=== PATIENT | female | born 1995 | race Caucasian/White ===

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

== ENCOUNTER 2017-04-28 10:18 | Emergency (ER) | payer MEDICAID ==
[2017-04-28] MEDS ORDERED: NORMAL SALINE 1,000 ML IV ONE (10:42)
[2017-04-28] MEDS ORDERED: ACETAMINOPHEN 160 MG/5 ML BTL PO ONE (10:42)
[2017-04-28] MEDS ORDERED: KETOROLAC TROMETHAMINE 30 MG/ML VIAL IV ONE (10:42)
--- NOTE | 2017-04-28 10:43 | ERNOTE ---
ENT HPI Date of Service: 04/28/17 Presenting Symptoms: other - Sore throat Time Seen by Provider: 04/28/17 10:28 Source: patient, family, RN notes reviewed, old records Exam Limitations: no limitations - Immun/Allergies/Home Medications Immunizations: IMMUNIZATION HX Immunizations Up to Date Yes History of Influenza Vaccine Yes Hx Pneumococcal Vaccination No Allergies/Adverse Reactions: Allergies Allergy/AdvReac Type Severity Reaction Status Date / Time Penicillins Allergy Hives Verified 04/28/17 10:25 Home Medications: HOME MEDICATIONS NK [No Home Medication] 04/28/17 [Last Taken Unknown] - History of Present Illness Narrative: 21 y/o female ambulatory to the ED for an ongoing sore throat. She reports having swallowing difficulty to the point that she is unable to take pills. She was seen in the walk in clinic on 04/24. She tested negative for strep, but was treated with a ZPack. She was then seen here 2 days later for lack of improvement. She tested negative for mono. She was given IV fluids. She had a WBC of 14.9. She attempted to take ibuprofen at 0100, but gagged and vomited. Date (Duration): 04/24/17 Severity: Present: severe ENT Location: Present: throat Prearrival Treatment: Present: over the counter meds, prescription meds Associated Symptoms - ENT: Reports: fever, malaise, poor fluid intake, poor solid intake, voice change, sore throat, nasal congestion/drainage, headache. Denies: cough, drooling, facial pain/swelling, tooth pain, jaw swelling, ear drainage Prior Treament: Reports: recently seen, treated by physician, similar symptoms before, currently on antibiotics Review of Systems - Review of Systems Constitutional: Present: See HPI EYE: Present: no symptoms reported ENT: Present: See HPI Respiratory: Present: See HPI Cardiology: Present: no symptoms reported Gastrointestinal/Abdominal: Present: nausea, vomiting, abdominal pain Genitourinary: Absent: other - possible Musculoskeletal: Present: muscle pain, neck pain Skin: Absent: rash, lesions Neurological: Present: See HPI Endocrine: Present: no symptoms reported Hematologic/Lymphatic: Present: no symptoms reported Psych: Present: no symptoms reported - Patient's Past Medical History Patient History - Medical: Anemia, Migraines, UTI'S Patient History - Cardiac/Respiratory: No pertinent hx Patient History - Cancer: No Hx of Cancer Patient History - Surgical Procedures: Ear Tubes, T & A Patient History - Other: None LMP (Calendar): 04/05/17 - Family History Father Family History - Medical: Diabetes Type 2 Family History - Cardiac/Respiratory: Hypertension Mother Family History - Medical: Diabetes Type 2 Family History - Cardiac/Respiratory: No pertinent hx Grandfather-Paternal Family History - Medical: Grandfather-Maternal Family History - Medical: , Diabetes Type 2 Family History - Cardiac/Respiratory: Hypertension, Myocardial Infarction Family History - Cancer: No pertinent family hx Grandmother-Maternal Family History - Medical: No pertinent hx Family History - Cardiac/Respiratory: No pertinent hx Family History - Cancer: No pertinent family hx - Social History Living Situations: alone Abuse History: No History of abuse Psych History: Hx of Anxiety, Hx of Depression Does anyone smoke in the home?: No Alcohol Use: none Drug Use: none - Immunizations Immunizations Up to Date: Yes Hx Pneumococcal Vaccination: No History of Influenza Vaccine: Yes Physical Exam - Physical Exam General Appearance: Present: wd/wn, alert, mild distress Eye Exam: Normal inspection: bilateral Ears, Nose, Throat: Present: pharyngeal erythema, pharyngeal swelling, other - tonsils surgically absent, foul breath odor present. Absent: abnormal TM (R), abnormal TM (L), nasal congestion, sinus pain/drainage Neck: Present: supple, full range of motion, lymphadenopathy (R), lymphadenopathy (L) Respiratory: Present: no respiratory distress, normal breath sounds, no accessory muscle use, lungs clear Cardiovascular/Chest: Present: regular rate, rhythm, no murmur, normal peripheral pulses Neurological Exam: Present: alert, oriented, normal mood/affect Skin Exam: Present: normal color, warm/dry ED Progress - Results and Orders Patient's Lab Results:: I have reviewed the patient's lab results. - Vital Signs Patient's Vital Signs:: I have reviewed the patient's vital signs. Vital Signs: Vital Signs 04/28/17 10:22 Temperature 37.9 C H Pulse Rate 140 H Respiratory 14 Rate Blood Pressure 123/79 O2 Sat by Pulse 98 Oximetry - Progress/Reassessment Chief Complaint: Sore Throat Progress:: Improved Plan - Plan Plan: Repeat strep test is again negative, but will treat as strep as her symptoms are consistent with it. 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 No reaction of any kind present 30 minutes after med was given. Also received a liter of NS and a dose of solumedrol IV, as well as Tylenol liquid. Reports feeling better. Departure Clinical Impression: Acute pharyngitis Qualifiers: Pharyngitis/tonsillitis etiology: unspecified etiology Qualified Code(s): J02.9 - Acute pharyngitis, unspecified - Departure Disposition: Home self-care Condition: Stable Instructions: Sore Throat Additional Instructions: Drink plenty of liquids Tylenol and ibuprofen as discussed Referrals: Edil Prater MD [Primary Care Provider] -
[2017-04-28] MEDS ORDERED: KETOROLAC TROMETHAMINE 30 MG/ML VIAL ONE (10:44)
[2017-04-28] MEDS ORDERED: PENICILLIN G BENZATHINE 2 ML SYRG IM ONE ×2 (11:13→11:20)
[2017-04-28] MEDS ORDERED: METHYLPREDNISOLONE SOD SUCC/PF 125 MG/2 ML VIAL IV ONE (11:13)
[2017-04-28] MEDS ORDERED: METHYLPREDNISOLONE SOD SUCC/PF 125 MG/2 ML VIAL ONE (11:17)
[2017-04-28 12:46] VITALS: BP 117/74
== END 2017-04-28 12:00 | disposition home or self-care (01) ==
LOC: ER 10:18
DX: J02.9 Acute pharyngitis, unspecified (principal)

== ENCOUNTER 2017-07-28 10:44 | Emergency (ER) | payer MEDICAID ==
[2017-07-28] MEDS ORDERED: KETOROLAC TROMETHAMINE 60 MG/2 ML VIAL IM ONE ×2 (11:05→11:27)
--- NOTE | 2017-07-28 11:12 | ERNOTE ---
Lower Extremity HPI - General Time Seen by Provider: 07/28/17 10:57 Source: patient Exam Limitations: no limitations - Immun/Allergies/Home Medications Immunizations: IMMUNIZATION HX Immunizations Up to Date Yes History of Influenza Vaccine Yes Hx Pneumococcal Vaccination No Allergies/Adverse Reactions: Allergies Allergy/AdvReac Type Severity Reaction Status Date / Time Penicillins Allergy Hives Verified 07/28/17 10:54 Home Medications: HOME MEDICATIONS Methylprednisolone [Medrol Dosepak] 4 mg PO DAILY #1 tab.ds.pk 07/28/17 [Last Taken Unknown] - History of Present Illness Narrative: Painful reddish area on the left anterior tibia right superior anterior tibia and a tender area in the posterior left leg region. Patient states this happens "every couple of months" she complains of pain in the corresponding regions and denies any trauma insect bite or blunt trauma to the areas. He denies any fevers or chills or joint pains. She has been seen by Dr. Prater and worked up extensively. Review of Systems - Review of Systems Constitutional: Present: no symptoms reported EYE: Present: no symptoms reported ENT: Present: no symptoms reported Respiratory: Present: no symptoms reported Cardiology: Present: no symptoms reported Gastrointestinal/Abdominal: Present: no symptoms reported Genitourinary: Present: no symptoms reported Musculoskeletal: Present: See HPI - Patient's Past Medical History Patient History - Medical: Anemia, Migraines, UTI'S Patient History - Cardiac/Respiratory: No pertinent hx Patient History - Cancer: No Hx of Cancer Patient History - Surgical Procedures: Ear Tubes, T & A Patient History - Other: None LMP (Calendar): 04/05/17 - Family History Father Family History - Medical: Diabetes Type 2 Family History - Cardiac/Respiratory: Hypertension Mother Family History - Medical: Diabetes Type 2 Family History - Cardiac/Respiratory: No pertinent hx Grandfather-Paternal Family History - Medical: Grandfather-Maternal Family History - Medical: , Diabetes Type 2 Family History - Cardiac/Respiratory: Hypertension, Myocardial Infarction Family History - Cancer: No pertinent family hx Grandmother-Maternal Family History - Medical: No pertinent hx Family History - Cardiac/Respiratory: No pertinent hx Family History - Cancer: No pertinent family hx - Social History Living Situations: home Abuse History: No History of abuse Psych History: Hx of Anxiety, Hx of Depression Does anyone smoke in the home?: No Alcohol Use: none Drug Use: none - Immunizations Immunizations Up to Date: Yes Hx Pneumococcal Vaccination: No History of Influenza Vaccine: Yes Physical Exam - Physical Exam General Appearance: Present: wd/wn, alert, no apparent distress Head Exam: Present: normal inspection, no evidence of injury Ears, Nose, Throat: Present: normal ENT inspection Neck: Present: normal inspection Respiratory: Present: no respiratory distress, normal breath sounds, no accessory muscle use, chest nontender, lungs clear Cardiovascular/Chest: Present: regular rate, rhythm, no murmur, normal peripheral pulses Extremity Exam: Present: other - patient does have a red area on the left lower anterior ear tibial region which is tender to palpation and it appears slightly red no insect bites noted also on the posterior aspect of the left lower leg patient does have what appears to be a muscle knot or a firm area also slightly red without any streaking. She also has a tender area in the right upper anterior tibial region. ED Progress - Results and Orders Patient's Lab Results:: I have reviewed the patient's lab results. - Vital Signs Patient's Vital Signs:: I have reviewed the patient's vital signs. Vital Signs: Vital Signs 07/28/17 10:51 Temperature 36.6 C Pulse Rate 87 Respiratory 12 Rate Blood Pressure 132/70 O2 Sat by Pulse 100 Oximetry - Progress/Reassessment Chief Complaint: Lower Extremity Pain/ Injury Plan - Plan Plan: This patient's symptomatology and exam is most consistent with erythema nodosum which is a condition that can be seen in people with control pills. At this time the patient was educated to follow up with her primary care doctor and discussed the fact that perhaps she should discontinue control pills taking into consideration that she should be on some kind of a secondary control. She will be kept off of work today she was given a Toradol shot 60 mg IM for pain and will be placed on a Medrol Dosepak and she is to follow-up with Dr. Leonidas Lauren with consultation in regards to this case and informed as to the course of care. Departure Clinical Impression: Erythema nodosum - Departure Disposition: Home self-care Condition: Good Instructions: Erythema Nodosum Referrals: Edil Prater MD [Primary Care Provider] - Prescriptions: Methylprednisolone [Medrol Dosepak] 4 mg PO DAILY #1 tab.ds.pk
[2017-07-28 11:18] LABS: Hematocrit 35.4 % (37.0-47.0); Hemoglobin 12.2 gm/dL (12.5-16.0); Mean Cell Volume 83.9 fl (78-100); Mean Corpuscular Hemoglobin 28.9 pg (27-31); Mean Corpuscular Hgb Conc 34.5 g/dl (32-36); Mean Platelet Volume 9.2 fl (6.0-9.5); Neutrophil # 8.8 K/mm3 (1.3-6.0); Neutrophil % 76.4 % (42-75.0); Platelet Count 312 K/mm3 (150-450); Red Blood Count 4.22 M/mm3 (4.2-5.4); Red Cell Distribution Width 11.6 % (11.5-14.0); White Blood Count 11.5 K/mm3 (4.0-10.5)
[2017-07-28 12:06] VITALS: BP 128/71
== END 2017-07-28 11:55 | disposition home or self-care (01) ==
LOC: ER 10:44
DX: L52 Erythema nodosum (principal); Z87.440 Personal history of urinary (tract) infections; Z96.22 Myringotomy tube(s) status